=== PATIENT | male | born 1955 | race Caucasian/White ===

== ENCOUNTER 2021-12-23 12:05 | Inpatient (IN) | payer BC, MEDICARE ==
[~2021-12-23] VITALS: Ht 182.9 cm; Wt 107.0 kg
[2021-12-23] MEDS ORDERED: SODIUM CHLORIDE 0.9% 1000ML 1,000 ML IV STA (12:23)
[2021-12-23] MEDS ORDERED: Morphine 4mg Syringe 4 MG/ML INJ IV STA (12:23)
[2021-12-23] MEDS ORDERED: ONDANSETRON HCL INJ 2MG/ML 2ML 2 MG/ML VIAL IV ONE (12:30)
[2021-12-23] MEDS ORDERED: FAMOTIDINE 20 MG/2 ML VIAL IV ONE (12:30)
[2021-12-23] MEDS ORDERED: KETOROLAC TROMETHAMINE 30 MG/ML VIAL IV ONE (12:30)
[2021-12-23] MEDS ORDERED: SODIUM CHLORIDE 0.9% 1000ML 1,000 ML ONE (12:59)
[2021-12-23] MEDS ORDERED: ONDANSETRON HCL INJ 2MG/ML 2ML 2 MG/ML VIAL ONE (12:59)
[2021-12-23] MEDS ORDERED: KETOROLAC TROMETHAMINE 30 MG/ML VIAL ONE (12:59)
[2021-12-23] MEDS ORDERED: LEVOFLOXACIN 500MG/D5W 100ML IV SCH (13:15)
[2021-12-23] MEDS ORDERED: Morphine 4mg Syringe 4 MG/ML INJ ONE (13:18)
[2021-12-23] MEDS: METRONIDAZOLE 500MG/NS 100ML 100 ML IV SCH ×2 (13:28→20:37)
[2021-12-23] MEDS ORDERED: METRONIDAZOLE 500MG/NS 100ML 100 ML IV ONE (13:35)
[2021-12-23] MEDS ORDERED: DIPHENHYDRAMINE HCL INJ 50 MG/ML VIAL IV PRN (14:30)
[2021-12-23] MEDS ORDERED: LACTULOSE SYRUP 20 GM/30 ML UDC PO PRN (14:30)
[2021-12-23 15:00] VITALS: BP 135/83
[2021-12-23] MEDS ORDERED: ACETAMINOPHEN 325 MG TAB PO PRN (15:00)
[2021-12-23] MEDS ORDERED: CLONIDINE HCL 0.1 MG TAB PO PRN (15:00)
[2021-12-23] MEDS: LEVOFLOXACIN 500MG/D5W 100ML 100 ML IV SCH (15:28)
[2021-12-23] MEDS ORDERED: SODIUM CHLORIDE 0.9% 250ML 250 ML ONE (15:32)
[2021-12-23 15:47] VITALS: BP 135/83
[2021-12-23] MEDS: ONDANSETRON HCL INJ 2MG/ML 2ML 2 MG/ML VIAL IV PRN ×2 (16:45→20:49)
[2021-12-23] MEDS: Morphine 4mg Syringe 4 MG/ML INJ IV PRN ×2 (16:45→20:49)
[2021-12-23] MEDS: FAMOTIDINE 20 MG/2 ML VIAL IV SCH (17:01)
[2021-12-23] MEDS: ENOXAPARIN SOD INJ 40 MG/0.4 ML SYR SC SCH (17:01)
[2021-12-23] MEDS ORDERED: METRONIDAZOLE 500MG/NS 100ML IV SCH (18:00)
[2021-12-23 20:00] VITALS: BP 116/73
[2021-12-23] MEDS: ATORVASTATIN 20 MG TAB PO SCH (20:37)
[2021-12-23] MEDS ORDERED: ZOLPIDEM TARTRATE 10 MG TAB PO PRN (21:00)
[2021-12-23 23:57] VITALS: BP 102/55
[2021-12-24] VITALS (7 sets, daily range): BP systolic 110–127; BP diastolic 63–84
[2021-12-24] MEDS: Morphine 4mg Syringe 4 MG/ML INJ IV PRN ×5 (01:09→21:14)
[2021-12-24] MEDS: ONDANSETRON HCL INJ 2MG/ML 2ML 2 MG/ML VIAL IV PRN ×4 (01:09→17:00)
[2021-12-24] MEDS: METRONIDAZOLE 500MG/NS 100ML 100 ML IV SCH ×4 (02:55→20:00)
[2021-12-24 07:11] LABS: BASOPHILS % 0.5 % (0.0-1.0); EOSINOPHILS # (AUTO) 0.3 (0.0-0.4); EOSINOPHILS % 3.4 % (0.0-6.0); HEMATOCRIT 38.1 % (38.2-49.6); HEMOGLOBIN 12.8 g/dL (14.0-18.0); LYMPHOCYTES % 13.4 % (18.0-39.1); MEAN CORPUSCULAR HEMOGLOBIN 30.8 pg (28-32); MEAN CORPUSCULAR HGB CONC 33.6 g/dL (31-35); MEAN CORPUSCULAR VOLUME 91.8 fL (81-99); MONOCYTES # (AUTO) 0.7 (0.2-0.8); MONOCYTES % 9.5 % (4.4-11.3); NEUTROPHILS # (AUTO) 5.6 (2.1-6.9); NEUTROPHILS % 72.7 % (38.7-80.0); PLATELET COUNT 191 x10e3/uL (140-360); RED BLOOD COUNT 4.15 x10e6/uL (4.3-5.7); RED CELL DISTRIBUTION WIDTH 13.1 % (11.7-14.4)
[2021-12-24 07:40] LABS: ANION GAP 10.6 mmol/L (8-16); CALCIUM 8.1 mg/dL (8.4-10.2); CREATININE, SERUM 0.9 mg/dL (0.72-1.25); POTASSIUM 3.6 mmol/L (3.5-5.1)
[2021-12-24] MEDS: AMLODIPINE BESYLATE 5 MG TAB PO SCH (09:20)
[2021-12-24] MEDS: FAMOTIDINE 20 MG/2 ML VIAL IV SCH ×2 (09:20→17:09)
[2021-12-24] MEDS ORDERED: LEVOFLOXACIN 500MG/D5W 100ML 100 ML IV SCH (13:30)
[2021-12-24] MEDS ORDERED: BENZONATATE 100 MG CAP PO PRN (13:45)
[2021-12-24] MEDS: LEVOFLOXACIN 500MG/D5W 100ML 100 ML IV SCH (14:50)
[2021-12-24] MEDS: DOCUSATE SODIUM 100 MG CAP PO SCH (17:00)
[2021-12-24] MEDS: ENOXAPARIN SOD INJ 40 MG/0.4 ML SYR SC SCH (17:09)
[2021-12-24] MEDS: ATORVASTATIN 20 MG TAB PO SCH (21:13)
[2021-12-25] MEDS: METRONIDAZOLE 500MG/NS 100ML 100 ML IV SCH ×4 (02:00→20:00)
[2021-12-25 04:00] VITALS: BP 111/59
[2021-12-25] MEDS: Morphine 4mg Syringe 4 MG/ML INJ IV PRN ×4 (04:07→22:04)
[2021-12-25 08:00] VITALS: BP 113/74
[2021-12-25 08:28] VITALS: BP 113/74
[2021-12-25] MEDS: FAMOTIDINE 20 MG/2 ML VIAL IV SCH ×2 (09:39→17:00)
[2021-12-25] MEDS: AMLODIPINE BESYLATE 5 MG TAB PO SCH (09:39)
[2021-12-25] MEDS: DOCUSATE SODIUM 100 MG CAP PO SCH ×2 (09:39→17:00)
[2021-12-25] MEDS: ONDANSETRON HCL INJ 2MG/ML 2ML 2 MG/ML VIAL IV PRN ×3 (09:50→22:05)
[2021-12-25 11:45] VITALS: BP 120/75
[2021-12-25] MEDS: LEVOFLOXACIN 500MG/D5W 100ML 100 ML IV SCH (14:00)
[2021-12-25 15:49] VITALS: BP 128/73
[2021-12-25] MEDS: ENOXAPARIN SOD INJ 40 MG/0.4 ML SYR SC SCH (17:00)
[2021-12-25 20:00] VITALS: BP 118/78
[2021-12-25] MEDS: ATORVASTATIN 20 MG TAB PO SCH (20:08)
[2021-12-26] VITALS: BP 105/61
[2021-12-26] MEDS: METRONIDAZOLE 500MG/NS 100ML 100 ML IV SCH ×3 (02:00→15:03)
[2021-12-26 04:00] VITALS: BP 120/80
[2021-12-26 07:48] VITALS: BP 122/73
[2021-12-26 07:54] VITALS: BP 122/73
[2021-12-26 11:37] VITALS: BP 131/76
[2021-12-26] MEDS: DOCUSATE SODIUM 100 MG CAP PO SCH (11:50)
[2021-12-26] MEDS: FAMOTIDINE 20 MG/2 ML VIAL IV SCH (11:50)
[2021-12-26] MEDS: AMLODIPINE BESYLATE 5 MG TAB PO SCH (11:50)
[2021-12-26] MEDS ORDERED: METRONIDAZOLE500 MG PO (12:19)
[2021-12-26] MEDS ORDERED: LEVOFLOXACIN500 MG PO (12:19)
[2021-12-26] MEDS ORDERED: ULTRAM50 MG PO (12:22)
[2021-12-26] MEDS ORDERED: NORVASC5 MG PO (12:24)
[2021-12-26] MEDS ORDERED: LIPITOR20 MG PO (12:24)
[2021-12-26] MEDS: LEVOFLOXACIN 500MG/D5W 100ML 100 ML IV SCH (15:03)
== END 2021-12-26 15:56 | disposition home or self-care (01) | DRG 392 ==
LOC: FSED 12:16 → ERHOLD 13:16 → MED/SURG3 14:56 → OBSVTOIN 12-24 13:57
PROVIDERS: ADMIT Internal Medicine; ATTEND Internal Medicine
DX: K57.32 Diverticulitis of large intestine without perforation or abscess without bleeding (principal); E66.01 Morbid (severe) obesity due to excess calories; Z68.32 Body mass index [BMI] 32.0-32.9, adult; I10 Essential (primary) hypertension; I25.10 Atherosclerotic heart disease of native coronary artery without angina pectoris; Z95.5 Presence of coronary angioplasty implant and graft; R05.9 Cough, unspecified; Z20.822 Contact with and (suspected) exposure to COVID-19
CPT/HCPCS: 36415; 74176; 80048; 80053; 81003; 85025; 96365; 99284; G0378; J1650; J1885; J1956; J2270; J2405; J7030; J7050; U0002